=== PATIENT | female | born 1955 | race Caucasian/White ===

== ENCOUNTER → 2016-09-02 | Outpatient (CLI) | payer OTHER ==
--- NOTE | ~2016-09-02 | MR113 ---
[facility] A Service of [facility] & [facility] RADIOLOGY TEXT RESULTS PATIENT: ALBERTO BETANCOURT LOCATION: [facility] : 55 UNIT #: [id number] AGE: [address]: Lillian Weston MD SEX: F ORDER DR: [id number] [facility] [address] [place], [place] [address] [id number] O MR#: [id number] Acc #: [id number] NAME: ALBERTO BETANCOURT : 1955 SEX: F STUDY DATE/TIME: 09/02/2016 11:49 UNIT: [facility] ROOM: STUDY DESCRIPTION: MR Lumbar Wo Contrast Attending Physician: Lililan Weston M.D. Referring Physician: Lillian Weston M.D. Ordering Physician: Lillian Weston M.D. Primary Care Physician: Ksenia Ordo[facility] REPORT This report is preliminary unless electronic signature is present. EXAM MRI lumbar spine. INDICATIONS Degenerative disc changes. Low back pain. Lumbosacral radiculopathy of L4-L5. Left lower extremity radiculopathy with pain and numbness. TECHNIQUE Multiplanar MRI of the lumbar spine without contrast. COMPARISON None available. FINDINGS Vertebral body height and alignment is normal. No abnormal bone marrow signal. The signal characteristics of the distal thoracic spinal cord and conus medullaris are within normal limits. The conus terminates at the L1 level. There is no significant disc protrusion in the lumbar spine. There is desiccation of the intervertebral discs greatest at the L3-4 level. There is no central canal stenosis. Patient does have mild facet arthropathy at L1-2 and L2-3 with moderate to severe facet arthropathy at L3-4, L4-5 and L5-S1. The facet arthropathy contributes to mild inferior neural foraminal narrowing on the right at L4-5 and on the left at L2-3, L3-4 and L4-5. Paravertebral soft tissues are within normal limits. IMPRESSION 1. Mild degenerative disc changes within the lumbar spine. 2. Moderate facet changes throughout the lumbar spine are the predominant abnormality. These contribute to mild neural foraminal [facility] A Service of [facility] & [facility] RADIOLOGY TEXT RESULTS PATIENT: ALBERTO BETANCOURT LOCATION: [facility] : 55 UNIT #: [id number] AGE: [address]: Lillian Weston MD SEX: F ORDER DR: stenosis as detailed at multiple levels above. Dictated by... Jatinder Lara M.D. THIS IS AN ELECTRONICALLY VERIFIED REPORT Jatinder Lara M.D. at 09/03/2016 10:58 AM TOMASA/rd TD: 09/03/2016 10:37 JOB #: [id number] MRI [facility]ENTER REPORT COPY
== END | disposition home or self-care (01) ==
LOC: CMRI 10:32
DX: M54.16 Radiculopathy, lumbar region (principal); M51.16 Intervertebral disc disorders with radiculopathy, lumbar region; M99.83 Other biomechanical lesions of lumbar region
CPT/HCPCS: 72148